=== PATIENT | female | born 1960 | race Caucasian/White ===

== ENCOUNTER 2021-09-01 18:01 | Emergency (ER) | payer SELFPAY ==
[~2021-09-01] VITALS: Ht 160 cm; Wt 54.4 kg
--- NOTE | 2021-09-01 18:03 | NUR ---
PT BIB DAUGHTER TO ER BED 06 C/O PERSISTENT MID CHEST PAIN R/T LUE THAT STARTED AT NOON TIME TODAY. PT TOOK ASPIRIN PRIOR TO COMING IN. PT DENIES ANY CARDIAC HISTORY BUT ADMITS SHE IS A SMOKER. PT GOWNED AND PLACED ON MONITOR. 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 AWAITING MD FERRO.
--- NOTE | 2021-09-01 18:08 | NUR ---
DR SWIFT AT BEDSIDE FOR EVAL.
--- NOTE | 2021-09-01 18:10 | NUR ---
SEEN BY DR SWIFT,[facility] CALLED,FACESHEET AND EKG FAXED TO [facility]
[2021-09-01] MEDS ORDERED: ONDANSETRON HCL/PF 4 MG/2 ML VIAL ONE (18:24)
[2021-09-01] MEDS ORDERED: NITROGLYCERIN PACKET 1 GM PACKET ONE (18:25)
[2021-09-01] MEDS ORDERED: MORPHINE SULFATE INJ 4 MG/ML DISP.SYRIN ONE (18:25)
--- NOTE | 2021-09-01 18:25 | NUR ---
[facility] CALLED,SPOKE WITH ETHEL,HE WILL PRESENT IT TO THEIR WINDOWS SYSTEMS ARCHITECT AND WILL GIVE US A CALL BACK
[2021-09-01 18:27] LABS: BASOPHILS % (AUTO) 0.3 % (0.0-2.0); EOSINOPHILS % (AUTO) 0.5 % (0.0-6.0); HEMATOCRIT 49 % (33-45); HEMOGLOBIN 16.8 g/dL (11.5-14.8); LYMPHOCYTES # (AUTO) 1.6 K/uL (0.8-4.8); LYMPHOCYTES % (AUTO) 12.1 % (20.0-44.0); MEAN CORPUSCULAR HGB CONC 34 g/dl (31.0-36.0); MEAN CORPUSCULAR VOLUME 103 fL (82-100); MONOCYTES # (AUTO) 0.7 K/uL (0.1-1.30); MONOCYTES % (AUTO) 5.2 % (2.0-12.0); NEUTROPHILS # (AUTO) 10.6 K/uL (1.8-8.9); NEUTROPHILS % (AUTO) 81.9 % (43.0-81.0); PLATELET COUNT (AUTO) 317 K/uL (150-450); RED BLOOD CELL COUNT(AUTO) 4.74 MIL/uL (4.0-5.2)
--- NOTE | 2021-09-01 18:27 | NUR ---
[facility] CALL[facility] - SPOKE WITH JAMISON GARZA - CASE PRESENTED
[2021-09-01] MEDS ORDERED: MORPHINE SULFATE INJ 2 MG/ML DISP.SYRIN IV ONE (18:30)
[2021-09-01] MEDS ORDERED: ONDANSETRON HCL/PF 4 MG/2 ML VIAL IVP ONE (18:30)
[2021-09-01] MEDS ORDERED: NITROGLYCERIN PACKET 1 GM PACKET TD ONE (18:30)
[2021-09-01 18:39] LABS: CALCIUM, SERUM 9.1 mg/dL (8.5-10.1); CREATININE 0.8 mg/dL (0.6-1.3)
[2021-09-01 18:43] LABS: POTASSIUM 2.4 mmol/L (3.5-5.1)
--- NOTE | 2021-09-01 18:44 | NUR ---
CASE PRESENTED TO [facility]: FAXED EKG AND FACE SHEET TO: [phone] & [phone] CASE DISCUSSED WITH [place] [employer] [facility] - LUC PADILLA
[2021-09-01] MEDS ORDERED: LABETALOL HCL IV 100MG VIAL ONE (18:57)
[2021-09-01] MEDS ORDERED: LABETALOL HCL IV 100MG VIAL IV ONE (19:00)
[2021-09-01 19:03] VITALS: BP 192/105
--- NOTE | 2021-09-01 19:08 | NUR ---
PT TRANSPORTED VIA [facility] TEAM. CONDITION GUARDED.
== END 2021-09-01 19:10 | disposition short-term general hospital (02) ==
LOC: ER 18:01
DX: I21.3 ST elevation (STEMI) myocardial infarction of unspecified site (principal); E87.6 Hypokalemia; R73.9 Hyperglycemia, unspecified; F17.200 Nicotine dependence, unspecified, uncomplicated; R03.0 Elevated blood-pressure reading, without diagnosis of hypertension; Z20.822 Contact with and (suspected) exposure to COVID-19
CPT/HCPCS: 36415; 71045; 80048; 84484; 85025; 87426; 93005; 96374; 99291; C9803; J3490; J2270; J2405